=== PATIENT | female | born 1965 | race Caucasian/White ===

== ENCOUNTER 2018-06-21 08:13 | Inpatient (IN) | payer OTHER ==
[2018-06-12 12:32] VITALS: BMI 21.8
--- NOTE | 2018-06-19 13:28 | HP ---
Admitting History and Physical - Primary Care Physician PCP: Jesus Ortiz - Admission Chief Complaint: high risk for breast cancer History of Present Illness: Patient is a 52 yo female who presents as a high risk for breast cancer patient secondary to personal h/o of BRCA positivity (185 del AG) as well as family history of breast and ovarian cancer. Patient's mammo and US were wnl 11/2017. MRI done 10/2017 was c/w a nonmass enhancement vs dilated vessel for which an MRI core bx was recommended. On the day of the scheduled bx (03/05/2018), the linear enhancing area was not demonstrated. No other areas of suspicious enhancement was noted in the right breast therefore the bx was not performed. Patient is now presenting for bilateral prophylactic mastectomy with implant reconstruction. History Source: Patient Limitations to Obtaining History: No Limitations - Past Medical History Endocrine: Yes: Hypothyroidism - Past Surgical History Past Surgical History: Yes: Breast Biopsy (right breast bx (10 yrs ago-benign)) , Oopherectomy (BSO prophylactically 2008) - Smoking History Smoking history: Never smoked Have you smoked in the past 12 months: No If you are a former smoker, when did you quit?: AT 36 YRS. OF AGE - Alcohol/Substance Use Hx Alcohol Use: Yes (social) Home Medications - Allergies Allergies/Adverse Reactions: Allergies Allergy/AdvReac Type Severity Reaction Status Date / Time gluten Allergy Severe PT. HAS Verified 02/26/18 16:08 CELIAC soy AdvReac Intermediate Nausea Verified 02/26/18 16:08 - Home Medications Home Medications: Ambulatory Orders Lactobacillus Acidophilus [Acidophilus] 1 each PO DAILY 02/26/18 Multivit with Iron,Minerals [Compete] 1 each PO DAILY 02/26/18 Calcium Carbonate [Calcium] 500 mg PO DAILY 06/12/18 Cholecalciferol (Vitamin D3) [Vitamin D3] 5,000 unit PO DAILY 06/12/18 Enzymes,Digestive [Enzyme Digest] 1 each PO DAILY 06/12/18 Thyroid,Pork [[place] Thyroid] 1,500 mg PO DAILY 06/12/18 Family Disease History - Family Disease History Family Disease History: CA: Grandparent (pat GM ovarian ac 41//mat GF CRC 60), Father (prostate ca 70 BRCA 1 and 2 positive), Mother (CRC 57) Other Family History: maternal cousin with breast cancer at 38, BRCA neg. paternal cousin-ovarian cancer at 40. paternal cousin x 2 BRCA positive Review of Systems - Review of Systems Constitutional: reports: No Symptoms Cardiovascular: reports: No Symptoms Respiratory: reports: No Symptoms Physical Examination Constitutional: Yes: Well Nourished Breast(s): Yes: Other (Bilateral reduction mastopexy incisions. No palpable suspicious masses or adenopathy noted bilaterally.) Problem List - Problems (1) Genetic susceptibility to breast cancer Code(s): Z15.01 - GENETIC SUSCEPTIBILITY TO MALIGNANT NEOPLASM OF BREAST (2) Family history of breast cancer Code(s): Z80.3 - FAMILY HISTORY OF MALIGNANT NEOPLASM OF BREAST (3) Family history of ovarian cancer Code(s): Z80.41 - FAMILY HISTORY OF MALIGNANT NEOPLASM OF OVARY Assessment/Plan Plan Bilateral mastectomy with implant reconstruction.
[2018-06-21] MEDS ORDERED: GENTAMICIN SO4 80 MG/2 ML VIAL ONE (08:44)
[2018-06-21] MEDS ORDERED: ceFAZolin SODIUM 1 GM VIAL ONE ×3 (08:44→10:46)
[2018-06-21] MEDS ORDERED: LIDOCAINE 1%/EPI 1:100000 (20 ML MULTI DOSE VIAL) ONE (09:07)
[2018-06-21] MEDS ORDERED: BUPIVACAINE LIPOSOME/PF (EXPAREL) 266 MG/20 ML VIAL ONE (09:29)
[2018-06-21] MEDS ORDERED: MIDAZOLAM HCL 2 MG/2 ML SINGLE DOSE VIAL ONE (09:29)
[2018-06-21] MEDS ORDERED: BUPIVACAINE HCL/PF 2.5 MG/ML - 30 ML VIAL IJ ONE (09:30)
[2018-06-21] MEDS ORDERED: DEXAMETHASONE SOD PHOSPHATE 4 MG/1 ML VIAL ONE ×2 (10:12→13:05)
[2018-06-21] MEDS ORDERED: ONDANSETRON 4 MG/2 ML VIAL ONE (10:12)
[2018-06-21] MEDS ORDERED: LIDOCAINE HCL/PF 2% SDV 5ML VIAL ONE (10:12)
[2018-06-21] MEDS ORDERED: ROCURONIUM BROMIDE 50 MG/5 ML VIAL ONE ×2 (10:12→11:44)
[2018-06-21] MEDS ORDERED: PROPOFOL 20 ML ONE (10:12)
[2018-06-21] MEDS ORDERED: ONDANSETRON 4 MG/2 ML VIAL IVPUSH PRN (11:08)
[2018-06-21] MEDS ORDERED: oxyCODONE HCL 5 MG TABLET PO PRN (11:12)
[2018-06-21] MEDS ORDERED: LACTATED RINGERS SOLUTION 1,000 ML IV SCH (11:15)
[2018-06-21] MEDS ORDERED: ZOLPIDEM TARTRATE 5 MG TABLET PO PRN (12:09)
[2018-06-21] MEDS ORDERED: ACETAMINOPHEN 325 MG TABLET (FP) PO PRN (12:09)
--- NOTE | 2018-06-21 13:45 | OP ---
DATE OF OPERATION: 06/21/2018 PREOPERATIVE DIAGNOSIS: Genetic susceptibility for breast cancer BRCA1 positive. POSTOPERATIVE DIAGNOSIS: Genetic susceptibility for breast cancer BRCA1 positive. PROCEDURE: Bilateral total nipple-sparing mastectomies through inframammary approach with bilateral direct implant reconstruction. ANESTHESIA: General endotracheal anesthesia. PRIMARY SURGEON: Pierre Kilgore MD JAVA WEB ENGINEER: YVES Allison PRIMARY SURGEON FOR THE BILATERAL DIRECT IMPLANT RECONSTRUCTION: Pierre Howard MD HIS JAVA WEB ENGINEER: YVES Martines COMPLICATIONS: There were no complications. INDICATIONS: Briefly, the patient is a 52-year-old nulliparous postmenopausal white female of [employer]azi W[employer] heritage who has a strong family history with her maternal cousin who had breast cancer at age 38. She has a paternal cousin and paternal grandmother, both who had ovarian cancer in the their 40s and 2 paternal cousins tested BRCA2 positive. Her father from prostate cancer and had a BRCA1 and BRCA2 mutation. The patient herself tested BRCA1 positive in 2001 with a 185 deletion AG mutation. She underwent a prophylactic bilateral salpingo-oophorectomy in 2008 and was on bioidentical hormones. She has been getting close surveillance. She did have bilateral reduction mastopexy surgery in 1984. She was seen in consultation regarding risk-reduction prophylactic mastectomy and understood risk-reduction strategies and decided to go forward with the surgery. DESCRIPTION OF PROCEDURE: She was brought in for the procedure on June 21, 2018. In the holding area, site verification was made, and informed consent was obtained. She was marked preoperatively by the plastic surgeon. She underwent a preoperative bilateral pectoral nerve block by Anesthesia preoperatively and was brought into the operating room. In the operating room, she was laid on the OR table in the supine position. Venodynes were placed on the lower extremities. She received 2 g of Ancef prior to incision. She was given general endotracheal anesthesia. Both breasts were sterilely prepped and draped in the usual fashion. The left mastectomy was first performed. Bilateral inframammary incisions were marked out, about 10 cm in length using the prior reduction pattern inframammary incision. The skin edges were everted, and the breast tissue retracted inferiorly using Winn clamps. The skin flap was raised using the PEAK radiofrequency device superiorly to the level of the clavicle, medially to the level of the sternum, laterally to the level of the latissimus, and inferiorly below the level of the inframammary fold. The breast was taken down off the pectoralis major muscle using electrocautery and was removed from inferomedial to superolateral and completely removed intact. It was oriented with the long-lateral short-superior suture and weighed to allow for appropriate cosmetic result. The skin flaps were visualized to remove all the gross visible breast tissue. A retroareolar biopsy was taken underneath the left nipple areolar complex, sent for frozen section, came back negative, so, the nipple was spared. Hemostasis was achieved, and the wound was copiously irrigated with warm sterile saline. At this point, the right mastectomy was approached, again performing the mastectomy using the prior inframammary incision from her reduction mastopexy incision about 10 cm in length, symmetrical to the left breast incision. The skin flaps were everted, and the breast was retracted inferiorly using Lucas clamps. Again, the PEAK radiofrequency device was used and raised the skin flaps superiorly to the level of the clavicle, medially to the level of the sternum, laterally to the level of the latissimus, and inferiorly below the level of the inframammary fold. The breast was taken down off the pectoralis major muscle using electrocautery from inferomedial to superolateral and completely removed intact. It was oriented with the long-lateral short-superior suture and weighed to allow for appropriate cosmetic result. Both breasts were sent down to Pathology in formalin as left and right breast nipple-sparing mastectomy specimens. Again, the skin flaps were visualized to remove all the gross visible breast tissue. A retroareolar biopsy was taken underneath the right nipple areolar complex, sent for frozen section, came back negative, so, the right nipple was spared. Hemostasis was achieved, and the wound was copiously irrigated with warm sterile saline. At this point, Dr. Howard became the primary surgeon, performed bilateral subpectoral direct implant reconstruction using AlloDerm sutured into the inferolateral aspects of both pectoralis major muscles. We did use the SPY Skin Perfusion Device, and she had excellent skin perfusion bilaterally. All wounds will be closed by plastic surgery using interrupted 3-0 deep dermal PDS suture and a running 4-0 subcuticular PDS. Two Jose drains will be placed around each implant, brought through separate stab incisions on the lateral skin flaps and secured in place using 3-0 nylon suture. All sponge and needle counts were correct at this point in the case, and estimated blood loss was about 100 mL. She was hemodynamically stable throughout the case. She will be extubated and brought to the post-anesthesia care unit postoperatively and will be recovered and admitted postoperatively for postoperative pain and wound management. PIERRE KILGORE M.D. [id number]
--- NOTE | 2018-06-21 13:45 | SURG ---
Surgery Aerial Crop Duster Note Aerial Crop Duster: Conrad Torres PA-C Date of Service: 06/21/18 Diagnosis: High genetic risk for breast cancer Procedure: Bilateral breast reconstruction with implants and alloderm I was present for the entirety of the operative procedure. For further detail, please refer to operative report. Visit type - Case Type Case Type: Scheduled - Emergency Emergency Visit: No - New patient This patient is new to me today: Yes Date on this admission: 06/21/18
[2018-06-21] MEDS ORDERED: diazePAM 2 MG TABLET PO ONE (14:58)
[2018-06-21] MEDS: traMADol HCL 50 MG TABLET PO SCH ×2 (15:54→23:08)
[2018-06-21] MEDS: CEFAZOLIN 1 GM/D5W 1 GRAM/50 ML BAG IVPB SCH ×2 (15:54→20:43)
[2018-06-21] MEDS: DEXTROSE 5%-0.45% SALINE 1,000 ML IV SCH (15:54)
[2018-06-21] MEDS: ACETAMINOPHEN 325 MG TABLET (FP) PO SCH ×2 (15:54→20:43)
[2018-06-21] MEDS: diazePAM 2 MG TABLET PO SCH ×2 (15:54→21:48)
[2018-06-21] MEDS: ONDANSETRON 4 MG/2 ML VIAL IVPUSH PRN ×2 (18:00→23:08)
[2018-06-22] MEDS: CEFAZOLIN 1 GM/D5W 1 GRAM/50 ML BAG IVPB SCH ×4 (02:32→21:14)
[2018-06-22] MEDS: ACETAMINOPHEN 325 MG TABLET (FP) PO SCH ×4 (02:32→21:14)
[2018-06-22] MEDS: traMADol HCL 50 MG TABLET PO SCH ×3 (06:42→23:32)
[2018-06-22] MEDS: diazePAM 2 MG TABLET PO SCH ×3 (06:42→21:16)
[2018-06-22 08:14] LABS: HEMATOCRIT 30.5 % (32.4-45.2); MCH 33.5 pg (25.7-33.7); MCHC 36.1 g/dl (32.0-36.0); MEAN PLT VOLUME 8.1 fl (7.5-11.1); PLATELET COUNT 225 K/MM3 (134-434); RBC 3.28 M/mm3 (3.60-5.2); RDW 12.6 % (11.6-15.6); WHITE BLOOD COUNT 10.3 K/mm3 (4.0-10.8)
--- NOTE | 2018-06-22 09:41 | PN ---
Progress Note, Physician Chief Complaint: S/P bilateral mastectomy with implant reconstruction POD#1 History of Present Illness: Patient was seen today and reports good pain control. She is tolerating po well. - Current Medication List Current Medications: Active Medications Acetaminophen (Tylenol -) 650 mg PO Q6H [facility] Last Admin: 06/22/18 09:32 Dose: 650 mg Acetaminophen (Tylenol -) 650 mg PO Q4H PRN PRN Reason: FEVER Calcium Carbonate (Os-Chan 500mg -) 500 mg PO DAILY [facility] Cholecalciferol (Vitamin D3 -) 5,000 unit PO DAILY [facility] Diazepam (Valium -) 2 mg PO Q8H [facility] Last Admin: 06/22/18 06:42 Dose: 2 mg Cefazolin Sodium (Ancef 1 Gm Premixed Ivpb -) 1 gram in 50 mls @ 100 mls/hr IVPB Q6H-IV [facility] Stop: 06/28/18 14:59 Last Admin: 06/22/18 09:32 Dose: 100 mls/hr Dextrose/Sodium Chloride (D5-1/2ns -) 1,000 mls @ 100 mls/hr IV ASDIR [facility] Last Admin: 06/21/18 15:54 Dose: Not Given Lactobacillus Acidophilus (Bacid -) 1 tab PO DAILY [facility] Non-Formulary Medication (Enzymes,Digestive [Enzyme Digest]) 1 each PO DAILY [facility] Non-Formulary Medication (Thyroid,Pork [[place] Thyroid]) 1,500 mg PO DAILY [facility] Ondansetron HCl (Zofran Injection) 4 mg IVPUSH Q6H PRN PRN Reason: NAUSEA AND/OR VOMITING Last Admin: 06/21/18 23:08 Dose: 4 mg Oxycodone HCl (Roxicodone -) 5 mg PO Q3H PRN PRN Reason: PAIN LEVEL 4 - 6 Oxycodone HCl (Roxicodone -) 10 mg PO Q4H PRN PRN Reason: PAIN LEVEL 6-10 Tramadol HCl (Ultram -) 50 mg PO Q8H [facility] Last Admin: 06/22/18 06:42 Dose: 50 mg Zolpidem Tartrate (Ambien -) 5 mg PO HS PRN PRN Reason: Insomnia - Objective Vital Signs: Vital Signs Temperature 99.2 F 06/22/18 06:00 Pulse Rate 56 L 06/22/18 06:00 Respiratory Rate 18 06/22/18 06:00 Blood Pressure 90/58 L 06/22/18 07:15 O2 Sat by Pulse Oximetry (%) 94 L 06/22/18 06:00 Constitutional: Yes: Well Nourished, Calm Breast(s): Yes: Other (Bilateral mastectomy flaps with ecchymosis noted. Nipple /areola complex with good color noted. MELONIE's x 4 with serosanginous discharge noted.) Labs: CBC, BMP 06/22/18 07:46 Problem List - Problems (1) Genetic susceptibility to breast cancer Code(s): Z15.01 - GENETIC SUSCEPTIBILITY TO MALIGNANT NEOPLASM OF BREAST (2) Family history of breast cancer Code(s): Z80.3 - FAMILY HISTORY OF MALIGNANT NEOPLASM OF BREAST (3) Family history of ovarian cancer Code(s): Z80.41 - FAMILY HISTORY OF MALIGNANT NEOPLASM OF OVARY Assessment/Plan S/P bilateral mastectomy with implant reconstruction POD#1 Plan: OOB today with assistance. Teach MELONIE monitoring Con't IV until tolerating po well Plan for discharge in am Pain management as per anesthesia
[2018-06-22] MEDS: CALCIUM (OYSTER SHELL) 500 MG TABLET (FP) PO SCH (10:00)
[2018-06-22] MEDS ORDERED: THYROID PORK PO SCH (10:00)
[2018-06-22] MEDS ORDERED: ENZYMES DIGESTIVE PO SCH (10:00)
[2018-06-22] MEDS ORDERED: PATIENT'S OWN MEDICATION (NON-FORMULARY) (Lactobacillus Acidophilus [Acidophilus] 1 EACH) PO SCH (10:00)
[2018-06-22] MEDS: CHOLECALCIFEROL (VITAMIN D3) 1,000 UNIT TABLET (FP) PO SCH (10:16)
[2018-06-22] MEDS: LACTOBACILLUS ACIDOPHILUS 1 TABLET PO SCH (11:25)
--- NOTE | 2018-06-22 13:22 | OP ---
DATE OF OPERATION: 06/21/2018 PREOPERATIVE DIAGNOSES: 1. Bilateral acquired chest wall deformity status post bilateral mastectomy (611.89). 2. Personal history of genetic carcinoma. POSTOPERATIVE DIAGNOSES: 1. Bilateral acquired chest wall deformity status post bilateral mastectomy (611.89). 2. Personal history of genetic carcinoma. PROCEDURE: 1. Right immediate breast reconstruction utilizing immediate insertion of silicone breast implant and AlloDerm reconstruction. 2. Left immediate breast reconstruction utilizing immediate insertion of silicone breast implant and AlloDerm reconstruction. 3. Intravenous injection of indocyanine green dye and intraoperative diagnostic evaluation of non-coronary intraoperative fluorescein vascular angiography x 2. SURGEON: Dr. Wicho Howard YARN MERCERIZER OPERATOR HELPER: Conrad Torres PA-C ANESTHESIA: GENERAL OPERATIVE PROCEDURE IN DETAIL: The patient was taken to the operating room. After induction of general anesthesia in the supine position, both arms were extended and padded. Venodyne boots were placed. The entire chest wall was painted with ChloraPrep solution over its entire extent, and sterile drapes were placed in the usual fashion. The markings, which had been made in the standing position preoperatively, were reoutlined with the patient's knowledge. Time-out procedure was performed. Attention was turned by Dr. Ortiz to the mastectomies. Bilateral inframammary incisions were made and Dr. Ortiz performed mastectomies. This will be dictated under separate cover. Upon completion of the mastectomies, the wounds were copiously irrigated and attention was turned to the right breast. A subpectoral dissection was begun on the right breast, superiorly from the second rib, medially to the sternal fibers, and down to the inframammary fold, elevating the pectoralis major muscle from its insertion. At this point, an 8.0 x 16.0 sheet of AlloDerm was brought into the field and sutured superiorly along the pectoralis major muscle after rehydration. This was carried along the lateral mammary fold and down the side of the breast reconstruction. At this point, a Natrell Inspira soft touch breast implant style SSF 415 mL was chosen. The left breast tissue removed was 288 gm, and the right breast approximately 267 gm. This implant was placed and then sutured with 3-0 Vicryl suture continued along the inframammary fold, completely covering the implant itself. The exact same procedure was carried out symmetrically on the opposite breast, also placing a Natrell Inspira soft touch breast implants style SSF 415 mL in the same subpectoral pocket. Good symmetry was seen in the sitting position. After the implants were in place, the patient was injected with 10 mL of Isocyanide green dye and the Spy imaging system was brought into the field. The skin flowed to the right and left breasts and the nipple areolar complex, and the entire skin flaps were evaluated and seen to be viable with good blood flow. Two Jose drains were brought out through separate stab wounds laterally. The Smart Infuser pump catheter was inserted medially and into the subpectoral position. Both wounds were closed symmetrically using 3-0 PDS suture on the deep tissue, 3-0 in a deep dermal fashion, and 4-0 in a subcuticular fashion. Both wounds were dressed sterilely with Mastisol and Steri-Strips with a surgical bra and a compression strap. The patient tolerated the procedure well. She was awakened, extubated and transferred to the recovery room in satisfactory condition. The assistant merchandiser was present during the entire portion of the operation and closure. PIERRE HOWARD M.D. [id number]
[2018-06-22] MEDS: LORATADINE 10 MG TABLET PO SCH (14:40)
[2018-06-23] MEDS: oxyCODONE HCL 5 MG TABLET PO PRN (01:28)
[2018-06-23] MEDS: ACETAMINOPHEN 325 MG TABLET (FP) PO SCH ×4 (02:09→21:04)
[2018-06-23] MEDS: CEFAZOLIN 1 GM/D5W 1 GRAM/50 ML BAG IVPB SCH ×4 (02:09→21:04)
[2018-06-23] MEDS: diazePAM 2 MG TABLET PO SCH ×2 (06:18→14:23)
[2018-06-23] MEDS: traMADol HCL 50 MG TABLET PO SCH ×2 (06:18→14:23)
[2018-06-23] MEDS: DEXTROSE 5%-0.45% SALINE 1,000 ML IV SCH ×2 (07:57→12:21)
[2018-06-23] MEDS: CHOLECALCIFEROL (VITAMIN D3) 1,000 UNIT TABLET (FP) PO SCH (09:41)
[2018-06-23] MEDS: LACTOBACILLUS ACIDOPHILUS 1 TABLET PO SCH (09:41)
[2018-06-23] MEDS: LORATADINE 10 MG TABLET PO SCH (09:41)
[2018-06-23] MEDS: CALCIUM (OYSTER SHELL) 500 MG TABLET (FP) PO SCH (09:41)
--- NOTE | 2018-06-23 10:30 | PN ---
Progress Note, Physician Chief Complaint: Genetic susceptibility for breast cancer BRCA+ History of Present Illness: The patient has a strong family history of breast and ovarian cancer with BRCA mutations on both her maternal and paternal sides of her family. She was getting close surveillance but has decided on bilateral risk reduction mastectomies. She had decided to undergoe a nipple sparing technique with direct to implant reconstructions - Current Medication List Current Medications: Active Medications Acetaminophen (Tylenol -) 650 mg PO Q6H [facility] Last Admin: 06/23/18 09:42 Dose: 650 mg Acetaminophen (Tylenol -) 650 mg PO Q4H PRN PRN Reason: FEVER Calcium Carbonate (Os-Chan 500mg -) 500 mg PO DAILY [facility] Last Admin: 06/23/18 09:41 Dose: 500 mg Cholecalciferol (Vitamin D3 -) 5,000 unit PO DAILY [facility] Last Admin: 06/23/18 09:41 Dose: 5,000 unit Diazepam (Valium -) 2 mg PO Q8H [facility] Last Admin: 06/23/18 06:18 Dose: 2 mg Cefazolin Sodium (Ancef 1 Gm Premixed Ivpb -) 1 gram in 50 mls @ 100 mls/hr IVPB Q6H-IV [facility] Stop: 06/28/18 14:59 Last Admin: 06/23/18 09:41 Dose: 100 mls/hr Dextrose/Sodium Chloride (D5-1/2ns -) 1,000 mls @ 100 mls/hr IV ASDIR [facility] Last Admin: 06/23/18 07:57 Dose: Not Given Lactobacillus Acidophilus (Bacid -) 1 tab PO DAILY [facility] Last Admin: 06/23/18 09:41 Dose: 1 tab Loratadine (Claritin -) 10 mg PO DAILY [facility] Last Admin: 06/23/18 09:41 Dose: 10 mg Non-Formulary Medication (Enzymes,Digestive [Enzyme Digest]) 1 each PO DAILY [facility] Non-Formulary Medication (Thyroid,Pork [[place] Thyroid]) 1,500 mg PO DAILY [facility] Ondansetron HCl (Zofran Injection) 4 mg IVPUSH Q6H PRN PRN Reason: NAUSEA AND/OR VOMITING Last Admin: 06/21/18 23:08 Dose: 4 mg Oxycodone HCl (Roxicodone -) 5 mg PO Q3H PRN PRN Reason: PAIN LEVEL 4 - 6 Last Admin: 06/23/18 01:28 Dose: 5 mg Oxycodone HCl (Roxicodone -) 10 mg PO Q4H PRN PRN Reason: PAIN LEVEL 6-10 Tramadol HCl (Ultram -) 50 mg PO Q8H [facility] Last Admin: 06/23/18 06:18 Dose: 50 mg Zolpidem Tartrate (Ambien -) 5 mg PO HS PRN PRN Reason: Insomnia - Objective Vital Signs: Vital Signs Temperature 97.5 F L 06/23/18 09:21 Pulse Rate 68 06/23/18 09:21 Respiratory Rate 18 06/23/18 09:21 Blood Pressure 110/68 06/23/18 09:21 O2 Sat by Pulse Oximetry (%) 96 06/23/18 09:21 Constitutional: Yes: Well Nourished, No Distress, Calm Eyes: Yes: WNL HENT: Yes: WNL Neck: Yes: WNL Cardiovascular: Yes: Regular Rate and Rhythm Respiratory: Yes: Regular, CTA Bilaterally Gastrointestinal: Yes: Normal Bowel Sounds, Soft ...Rectal Exam: Yes: Deferred Genitourinary: Yes: WNL Breast(s): Yes: Other (Bilateral mastectomy incisions clean, dry, and intact. Drains fuctioning well. Skin flaps and nipple warm and viable.) Musculoskeletal: Yes: WNL Extremities: Yes: WNL Integumentary: Yes: WNL Wound/Incision: Yes: Clean/Dry, Well Approximated Neurological: Yes: Alert, Oriented ...Motor Strength: WNL Psychiatric: Yes: WNL Labs: CBC, BMP 06/22/18 07:46 Problem List - Problems (1) Genetic susceptibility to breast cancer Assessment/Plan: The patient ins doing well POD#2 s/p bilateral nipple sparing mastectomies with direct to implant reconstructions with alloderm. Her skin and nipples are warm and viable. Drains are functioning well. She is still having some issues with pain control and will see how she is doing later today for discharge today or tomorrow AM. She was taught MELONIE drain management. Will send home on percocet for pain and cefadroxil antibiotics. Follow up with Drs. Ortiz and Lee in 1 week. No bath or shower until drains removed. No heavy activity or exercise. Keep compressive bra in place day and night. Record MELONIE outputs daily. Code(s): Z15.01 - GENETIC SUSCEPTIBILITY TO MALIGNANT NEOPLASM OF BREAST
--- NOTE | 2018-06-23 10:38 | DS ---
Physical Examination Vital Signs: Vital Signs Temperature 97.5 F L 06/23/18 09:21 Pulse Rate 68 06/23/18 09:21 Respiratory Rate 18 06/23/18 09:21 Blood Pressure 110/68 06/23/18 09:21 O2 Sat by Pulse Oximetry (%) 96 06/23/18 09:21 Constitutional: Yes: Well Nourished, No Distress, Calm Eyes: Yes: WNL HENT: Yes: WNL Neck: Yes: WNL Cardiovascular: Yes: Regular Rate and Rhythm Respiratory: Yes: Regular, CTA Bilaterally Gastrointestinal: Yes: Normal Bowel Sounds, Soft ...Rectal Exam: Yes: Deferred Renal/: Yes: WNL Breast(s): Yes: Other (Matectomy wounds clean, dry, and intact. Nipples and skin flaps warm and viable. MELONIE drains functioning well.) Musculoskeletal: Yes: WNL Extremities: Yes: WNL Integumentary: Yes: WNL Wound/Incision: Yes: Clean/Dry, Well Approximated Neurological: Yes: Alert, Oriented ...Motor Strength: WNL Psychiatric: Yes: WNL Labs: CBC, BMP 06/22/18 07:46 Discharge Summary Reason For Visit: GENETIC SUSCEPTIBILITY Genetic susceptibility for breast cancer BRCA positive Procedures: Principal: Bilateral Nipple sparing mastectomies with direct to implant reconstructions with alloderm Hospital Course: The patient was admitted postoperatively after bilateral nipple sparing mastectomies and direct to implant reconstructions due to genetic susceptibility for breast cancer. She did well and her wounds were clean, dry, and intact with viable skin flaps. She had good pain control with stable vitals. She was stable for discharge and will follow up with Drs. Howard and Diana in 1 week. No heavy lifting or exercise. Record MELONIE outputs daily. No bath or shower until drains removed. Keep compressive bra on day/night. Home on percocet for pain and cefadroxil antibiotics. Condition: Good - Instructions Diet, Activity, Other Instructions: BREAST SURGERY INSTRUCTIONS Cole Ortiz M.D., MADAI Ortiz M.D., MADAI Salcido M.D., FACS 1. Please call the office at to make a follow up appointment with your surgeon. This number can be also used for any urgent issues you may have. 2. Call us immediately if any of the following occur: *Bleeding from the incision or drain site (a small amount is normal) *Fever or chills *Redness and worsening tenderness around the surgical site *Drainage of pus or fluid from the incision or drain site 3. You may change the surgical dressing two (2) days after your surgery, and may shower then. If you have drains, you may shower after they have been removed, until then take a sponge bath. 4. It is normal for there to be some bruising and tenderness around the surgical site, and the breast may also be firm in this area. 5. Your surgeon used 3M DuraPrep Surgical Solution, a bacteria-killing skin preparation. It is recommended that this film remain on the skin after the procedure. The film will gradually wear away. If, however, early removal is desired: 1. Apply 8610 or 8611 3M Remover solution to the prepped area, keeping away from the wound edge or puncture site. Wipe off with a disposable towel. OR 2. Soak gauze with 70% Isopropyl alcohol and place on the prepped area for at least 40 seconds. Lightly scrub to remove the solution. 6. Please wear a comfortable bra (sports or surgical bra) all day and all night until your first follow-up visit with your surgeon. 7. The pain medicine you have been prescribed may make you constipated; make sure you drink plenty of water. You may use an over the counter laxative if needed. 8. You may resume your normal diet after surgery, although you may want to avoid rich foods for the first twenty-four (24) hours after surgery. Alcoholic drinks should be avoided while taking the prescribed pain medicine. 9. You may resume normal activities as long as there is no discomfort, but do not do upper body exercises until after your follow-up appointment. Do not lift anything heavier than a large phone book. You may resume driving once you have stopped taking the prescribed pain medicine and feel comfortable doing arm movements. Referrals: Jesus Ortiz MD [Staff Physician] - Mani Howard MD [Family Provider] - Disposition: HOME - Home Medications Comprehensive Discharge Medication List: Ambulatory Orders Lactobacillus Acidophilus [Acidophilus] 1 each PO DAILY 02/26/18 Multivit with Iron,Minerals [Compete] 1 each PO DAILY 02/26/18 Calcium Carbonate [Calcium] 500 mg PO DAILY 06/12/18 Cholecalciferol (Vitamin D3) [Vitamin D3] 5,000 unit PO DAILY 06/12/18 Enzymes,Digestive [Enzyme Digest] 1 each PO DAILY 06/12/18 Thyroid,Pork [[place] Thyroid] 1,500 mg PO DAILY 06/12/18 Cefadroxil 500 mg PO BID #20 capsule 06/22/18 Oxycodone HCl/Acetaminophen [Percocet 5-325 mg Tablet -] 1 - 2 tab PO Q6H #30 tablet MDD 6 06/22/18
[2018-06-24] MEDS: ACETAMINOPHEN 325 MG TABLET (FP) PO SCH ×2 (03:23→08:50)
[2018-06-24] MEDS: traMADol HCL 50 MG TABLET PO SCH ×2 (03:23→06:57)
[2018-06-24] MEDS: CEFAZOLIN 1 GM/D5W 1 GRAM/50 ML BAG IVPB SCH ×2 (03:23→08:09)
[2018-06-24] MEDS: diazePAM 2 MG TABLET PO SCH ×2 (03:23→05:52)
[2018-06-24] MEDS: oxyCODONE HCL 5 MG TABLET PO PRN ×2 (03:29→10:51)
[2018-06-24 09:05] VITALS: BP 101/63; PULSE 72; TEMP 98.2
[2018-06-24] MEDS: CHOLECALCIFEROL (VITAMIN D3) 1,000 UNIT TABLET (FP) PO SCH (09:13)
[2018-06-24] MEDS: CALCIUM (OYSTER SHELL) 500 MG TABLET (FP) PO SCH (09:13)
[2018-06-24] MEDS: LACTOBACILLUS ACIDOPHILUS 1 TABLET PO SCH (09:13)
[2018-06-24] MEDS: LORATADINE 10 MG TABLET PO SCH (09:13)
--- NOTE | 2018-06-25 14:03 | PATH ---
Surgical Pathology Report Patient Name: CHU BRANCH Med. Rec. #: [id number] /Age/Gender: 1965 (Age: 52) / F Account: [id number] Location: [facility] MED-SURG Taken: 06/21/2018 Received: 06/21/2018 Reported: 06/25/2018 Physicians: Jesus Ortiz M.D. Specimen(s) Received A: RIGHT RETROAREOLAR BIOPSY (FS) B: LEFT RETRO AREOLAR BIOPSY (FS) C: LEFT BREAST D: RIGHT BREAST Clinical History Bilateral prophylactic mastectomy BRCA+ Intraoperative Consult Diagnosis A. Right retroareolar biopsy, frozen section: Negative for malignancy. B. Left retroareolar biopsy, frozen section: Negative for malignancy. Brad Little M.D., 06/21/2018 Final Diagnosis A. RETROAREOLA, RIGHT, BIOPSY (FS): BENIGN BREAST TISSUE; NEGATIVE FOR MALIGNANCY. B. RETROAREOLA, LEFT, BIOPSY (FS): BENIGN BREAST TISSUE; NEGATIVE FOR MALIGNANCY. C. BREAST, LEFT, NIPPLE-SPARING MASTECTOMY: BENIGN BREAST TISSUE SHOWING FIBROCYSTIC CHANGES INCLUDING CYSTIC APOCRINE METAPLASIA AND STROMAL FIBROSIS. D. BREAST, RIGHT, NIPPLE RIGHT MASTECTOMY: BENIGN BREAST TISSUE SHOWING FIBROCYSTIC CHANGES INCLUDING CYSTIC APOCRINE METAPLASIA AND STROMAL FIBROSIS. Electronically Signed Josy Little M.D. Gross Description A. Received fresh labeled "right retroareolar biopsy" is a 1.8 x 0.8 x 0.3 cm portion of pink-ni tissue. A frozen section is performed on the specimen. The frozen section residue is entirely submitted in one cassette. B. Received fresh labeled "left retroareolar biopsy" is a 1.5 x 0.8 x 0.3 cm portion of pink-ni tissue. A frozen section is performed on the specimen. The frozen section residue is entirely submitted in one cassette. C. Received in formalin, labeled "right breast," is a 251 gram, 15.0 x 14.0 x 2.3 cm. right mastectomy specimen with a short suture marking the superior aspect and a long suture marking the lateral aspect of the specimen, per the surgeon. There is no skin or nipple present. The deep margin is inked black and the anterior soft tissue margin is inked blue. The specimen is serially sectioned from lateral to medial. Sectioning reveals abundant dense, white fibrous tissue. Geophysical Operator sections are submitted in 12 cassettes as follows: 1-3-upper outer quadrant; 4-5-lower outer quadrant; 6-8-upper inner quadrant; 9-10-lower inner quadrant; 11-anterior soft tissue margin; 12-deep margin. D. Received in formalin, labeled "left breast," is a 278 gram, 14.0 x 13.0 x 2.7 cm. left mastectomy specimen with a short suture marking the superior aspect and a long suture marking the lateral aspect of the specimen, per the surgeon. There is no skin or nipple present. The deep margin is inked black and the anterior soft tissue margin is inked blue. The specimen is serially sectioned from medial to lateral. Sectioning reveals abundant dense, white fibrous tissue. Geophysical Operator sections are submitted in 12 cassettes as follows: 1-2-upper outer quadrant; 3-5-lower outer quadrant; 6-8- upper inner quadrant; 9-10-lower inner quadrant; 11-anterior soft tissue margin; 12-deep margin. Time to formalin fixation: 40 minutes Total formalin fixation time: Approximately 30 hours. 06/22/2018 [facility]06/22/2018
== END 2018-06-24 11:37 | disposition home or self-care (01) | DRG 941 ==
LOC: FM/S 08:13
PROVIDERS: ADMIT Surgery Surgical Oncology; ATTEND Surgery Surgical Oncology
PROC: 4A1GXSH Monitoring of Skin and Breast Vascular Perfusion using Indocyanine Green Dye, External Approach (ICD-10-PCS; 2018-06-21)
PROC: 0HTV0ZZ Resection of Bilateral Breast, Open Approach (ICD-10-PCS; principal; 2018-06-21 10:45)
PROC: 0HRVXKZ (ICD-10-PCS; 2018-06-21 10:45)
DX: Z15.01 Genetic susceptibility to malignant neoplasm of breast (principal); Z80.3 Family history of malignant neoplasm of breast; Z80.41 Family history of malignant neoplasm of ovary
CPT/HCPCS: 36415; 85027; 88307-TC; 88331-TC; 94760